=== PATIENT | female | born 1955 | race Caucasian/White ===

== ENCOUNTER 2021-09-09 08:55 | Emergency (ER) | payer BC, SELFPAY ==
--- NOTE | ~2021-09-09 | CT_ITS ---
EXAMINATION:CT diagnostic chest wo con DATE: 09/09/2021 11:00 INDICATION: Right lung nodule. Abnormal chest radiograph. TECHNIQUE: Computed tomography (CT) of the chest was performed without intravenous contrast. Automate d exposure control and iterative reconstruction technique were employed. The dose-length product (DLP ) was 157.47 mGy-cm. COMPARISON: Chest single view 09/09/2021 FINDINGS: There is mild scarring at the lung apices. There is a cluster of nodules measuring up to 9 mm in right middle lobe. There is a small right posterior diaphragmatic hernia containing fat. No ple ural effusion. The heart size is normal. No pericardial effusion. There is mild thoracic spondylosis. IMPRESSION: 1. Cluster of nodules measuring up to 9 mm in right lung middle lobe. The distribution favors granulo matous disease over malignancy. Noncontrast chest CT is recommended in 3 months. Reviewed, dictated and finalized at location A. IMPRESSION: 1. Cluster of nodules measuring up to 9 mm in right lung middle lobe. The distr ibution favors granulomatous disease over malignancy. Noncontrast chest CT is r ecommended in 3 months.
--- NOTE | ~2021-09-09 | XR_ITS ---
XR chest 1V portable 09/09/2021 09:37 Indication: Chest pain Procedure: AP portable chest Comparison: No prior studies for comparison. Findings: Heart size normal. No focal air space disease, pulmonary edema, pleural effusion or suspect ed pneumothorax. There is a nodular density overlying the right lower thorax. Follow-up CT chest mayo mmended. No acute osseous abnormality. Impression: 1: Nodular density right lower thorax. Follow-up CT chest recommended. Reviewed, dictated and finalized at location A. Impression: 1: Nodular density right lower thorax. Follow-up CT chest recommended.
--- NOTE | ~2021-09-09 | CT_ITS ---
EXAMINATION: CT brain wo con DATE: 09/09/2021 09:19 INDICATION: One week of headache and dizziness presenting with now one day of right facial droop and blurry vision from the right eye. TECHNIQUE: Computed tomography (CT) of the head was performed without intravenous contrast. Sagittal and coronal reconstructions were performed. The mA was adjusted according to patient size. Iterative reconstruction technique was employed. The dose-length product was 605.33 mGy-cm. COMPARISON: None FINDINGS: No acute intracranial hemorrhage, acute infarction or abnormal extra axial fluid collection. There is minimal scattered white matter hypoattenuation consistent with chronic small vessel ischemic disease . Ventricles are normal and symmetric. No mass/mass effect. Mild mucosal thickening the left sphenoi d and bilateral ethmoid sinuses. The orbits and mastoid air cells are normal. IMPRESSION: 1. No acute intracranial process. 2. Minimal scattered white matter hypoattenuation consistent with chronic small vessel ischemic disea se. Reviewed, dictated and finalized at location B. IMPRESSION: 1. No acute intracranial process. 2. Minimal scattered white matter hypoattenuation consistent with chronic small vessel ischemic disease.
[2021-09-09 08:56] VITALS: BP 150/91; PULSE 101; RESP 20; TEMP 36.3; O2SAT 97
--- NOTE | 2021-09-09 09:12 | ECG_ITS ---
Measurements Intervals [place] Rate: 80 P: 65 MN: 164 QRS: 34 QRSD: 109 T: 52 QT: 365 QTc: 422 Interpretive Statements SINUS RHYTHM INCOMPLETE RIGHT BUNDLE BRANCH BLOCK [90+ ms QRS DURATION, TERMINAL R IN V1/V2, 40+ ms S IN I/aVL/V4/V5/V6] BORDERLINE ECG NO PREVIOUS ECG AVAILABLE FOR COMPARISON Electronically Signed On 09-09-2021 16:50:30 CDT by Alireza Berger M.D.
[2021-09-09 09:21] LABS: Basophils Absolute Auto 0.02 K/mm3 (0.00-0.10); Basophils Percent Auto 0.4 % (0.0-1.0); Eosinophils Absolute Auto 0.14 K/mm3 (0.02-0.50); Eosinophils Percent Auto 2.5 % (1.0-6.0); Hematocrit 41.1 % (35.0-49.0); Hemoglobin 13.4 g/dL (12.0-15.0); Immature Granulocyte Absolute 0.11 K/mm3 (0.00-0.00); Immature Granulocyte Percent A 1.9 % (0.0-0.0); Lymphocytes Absolute Auto 2.23 K/mm3 (1.10-4.50); Lymphocytes Percent Auto 39.3 % (18.0-42.0); Mean Corpuscular HGB Conc 32.6 g/dL (32.0-36.0); Mean Corpuscular Hemoglobin 28.5 pg (27.0-31.0); Mean Corpuscular Volume 87.4 fL (78.0-102.0); Mean Platelet Volume 11.5 fl (9.2-11.8); Monocytes Absolute Auto 0.39 K/mm3 (0.10-0.90); Monocytes Percent Auto 6.9 % (2.0-11.0); Neutrophils Absolute Auto 2.8 K/mm3 (1.7-7.2); Platelet Count Result 193 K/mm3 (150-420); Red Cell Distribution Width 13.2 % (11.6-14.4); White Blood Count 5.7 K/mm3 (4.8-10.8)
[2021-09-09] MEDS: ASPIRIN 325 MG ENTERIC TABLET PO (09:27)
[2021-09-09] MEDS: SODIUM CHLORIDE 0.9% IV 500 ML 999 ML IV CONT (09:28)
[2021-09-09 09:33] LABS: Alanine Aminotransferase 40 U/L (14-59); Alkaline Phosphatase 66 U/L (46-116); Anion Gap 7 mmol/L (8-16); Aspartate Amino Transferase 20 U/L (15-37); Bilirubin,Total 0.5 mg/dL (0.00-1.00); Blood Urea Nitrogen 14 mg/dL (7-18); Calcium 9.1 mg/dL (8.5-10.1); Carbon Dioxide 26 mmol/L (21-32); Chloride 105 mmol/L (98-108); Estimated Glomerular Filt Rate > 60; Glucose 122 mg/dL (70-99); Osmolality Calculated 287 mOsm/kg (285-295); Potassium 3.7 mmol/L (3.5-5.1); Sodium 138 mmol/L (136-145); Total Protein 7.8 g/dL (6.4-8.2); Troponin I 6.2 ng/L (0.00-60.4)
[2021-09-09 09:36] LABS: Lactic Acid Reflex 1.9 mmol/L (0.4-2.0)
--- NOTE | 2021-09-09 09:50 | PC.NURSE ---
pt taken to ct scanner at 908 and return to room at 09
[2021-09-09 10:02] LABS: Add Urine Microscopic? NO; Appearance Urine Clear (Clear); Bilirubin Urine Negative (Negative); Blood Urine Negative (Negative); Color Urine Light Yellow (Yellow); Glucose Urine UA Negative (Negative); Ketones Urine Negative (Negative); Leukocyte Esterase Ur Negative (Negative); Nitrate Urine Negative (Negative); Protein Urine Negative (Negative); Specific Grav Ur <= 1.005 (1.010-1.020); Urobilinogen Urine 0.2 mg/dL (0.2-1.0)
--- NOTE | 2021-09-09 10:55 | PC.NURSE ---
pt to ct scan with xray staff [id number], pt return at 1104
--- NOTE | 2021-09-09 11:23 | PC.NURSE ---
in room with pt. waiting call back from [facility]
--- NOTE | 2021-09-09 12:05 | ED.NEUROSD ---
HPI - Neuro Symptoms/Deficit General Chief Complaint: Suspected CVA Stated Complaint: R sided facial drooping Time Seen by Provider: 09/09/21 08:59 Source: patient, family and RN notes reviewed Mode of arrival: ambulatory Limitations: no limitations History of Present Illness Onset (ago): day(s) (1) Timing confirmed by: family member Location: right face (dense facial droop) History of same: No Severity: moderate Quality: weak Relieving factors: none Exacerbating factors: none Context: sudden onset On Anticoagulants: No Associated symptoms: nausea/vomiting Related Data Allergies Allergy/AdvReac Type Severity Reaction Status Date / Time banana Allergy Unknown Verified 12/07/17 10:21 cat dander Allergy Unknown Verified 12/07/17 10:21 Review of Systems Review of Systems: All systems reviewed & are unremarkable except as noted in HPI and below Constitutional: Constitutional: Reports no additional constitutional complaints Eyes: Eyes: Reports no additional eye complaints ENT: Reports system reviewed and no additional complaints, except as documented Cardiovascular: Cardiovascular: Reports no additional cardiovascular complaints Respiratory: Respiratory: Reports no additional respiratory complaints Gastrointestinal: Gastrointestinal: Reports no additional gastrointestinal complaints Genitourinary: Genitourinary: Reports no additional female genitourinary complaints Musculoskeletal: Musculoskeletal: Reports no additional musculoskeletal complaints Integumentary/Breasts: Skin/Breast: Reports system reviewed and no additional complaints, except as docu Neurologic: Reports system reviewed and no additional complaints, except as documented Psychiatric: Psychiatric: Reports no additional psychiatric complaints Endocrine: Endocrine: Reports no additional endocrine complaints Hematologic/Lymphatic: Hematologic/Lymphatic: Reports no additional hematologic/lymphatic complaints Allergic/Immunologic: Allergic/Immunologic: Reports no additional allergic/immunologic complaints [facility] Past Medical History Medical History (Updated 09/09/21 @ 14:22 by True Kessler MD) Chondromalacia of patella, right Mouth droop due to facial weakness Social History Social History Smoking status: Never smoker Alcohol intake: never Exam Const: General: healthy appearing and no acute distress Nutritional Appearance: well nourished Orientation/consciousness: patient oriented x3 Limitations: no limitations HENMT: Head: normal to inspection and other (dense right facial droop with inability to close the right eye + decreased ) Ears: external ears normal, TM's normal bilaterally and EAC's normal General nose exam: Normal external nose present and Normal nares present Face and sinus: normal facial exam and sinuses nontender Mouth: Yes Normal oral and palatal mucosa present and Yes moist mucous membranes Teeth and gingiva: dentition normal Throat: posterior oropharynx normal Eyes: Conjunctivae: conjunctivae normal Pupils: Equal, round and reactive pupils present EOM: EOMs intact bilaterally Neck: Neck: normal visual inspection, no lymphadenopathy and no meningeal signs Chest: Chest palpation & inspection: normal inspection of the chest Resp: Effort & Inspection: normal respiratory effort Auscultation: clear to auscultation bilaterally Cardio: Rate: regular rate Rhythm: regular rhythm GI: GI Palp: Yes Soft to palpation and No Tenderness to palpation present (GI) Auscultation: normal bowel sounds : General: Yes bladder normal to palpation and Yes no CVA tenderness Bimanual exam- vagina & uterus: bladder normal to palpation Back/Spine/Pelvis: Back: no CVA tenderness Skin: General skin exam: normal color Rashes: no rashes Wounds: no wounds Neuro: General: patient oriented x3, moves all extremities, no meningeal signs, no focal motor deficits and CN's II-XI intact bilaterally Cranial nerves: Yes Equal, round a
[2021-09-09] MEDS: methylPREDNISolone SOD SUCC 125 MG VIAL IV PUSH (14:18)
[2021-09-09 14:28] VITALS: BP 132/71; PULSE 71; RESP 20; TEMP 36.3; O2SAT 97
--- NOTE | 2021-09-09 14:35 | PC.NURSE ---
meal provided for pt and . pt was able to eat and drink but issues with food pocketing on the right side of mouth and dribbling of liquids.
== END 2021-09-09 14:44 | disposition home or self-care (01) ==
PROVIDERS: Emergency Provider Emergency Medicine; PCP Internal Medicine
DX: G51.0 Bell's palsy (principal)
CPT/HCPCS: 36415; 70450; 71045; 71250; 80053; 81003; 83605; 84484; 85025; 93005; 96361; 96374; 99284; A9270; J2930; J7040

== ENCOUNTER 2022-01-19 07:32 | Outpatient (CLI) | payer MEDICARE, SELFPAY ==
--- NOTE | ~2022-01-19 | CT_ITS ---
EXAMINATION: CT diagnostic chest wo con DATE: 01/19/2022 07:52 INDICATION: Right lung nodules TECHNIQUE: Computed tomography (CT) of the chest was performed without intravenous contrast. The dose -length product (DLP) was 148.89 mGy-cm. Automated exposure control and iterative reconstruction tech [employer] were employed. COMPARISON: 09/09/2021 FINDINGS: Again seen is a stable cluster of nodules in the right middle lobe which measure up to 9 mm . Stable right upper lobe nodules measure up to 2 mm. No new pulmonary nodules are identified. No ple ural effusion or pneumothorax. The lungs are free of focal airspace opacities. There is mild thoracic spondylosis. IMPRESSION: 1. Stable cluster of nodules in the right middle lobe with stability and distribution favoring granul omatous disease. Follow-up low-dose CT of the chest in six months is recommended. Reviewed, dictated and finalized at location F. IMPRESSION: 1. Stable cluster of nodules in the right middle lobe with stability and distri bution favoring granulomatous disease. Follow-up low-dose CT of the chest in si x months is recommended.
== END 2022-01-19 07:33 | disposition home or self-care (01) ==
LOC: CHSIMG 07:36
PROVIDERS: PCP Internal Medicine; Visit Provider Internal Medicine
DX: R91.8 Other nonspecific abnormal finding of lung field (principal)
CPT/HCPCS: 71250

== ENCOUNTER 2022-10-23 07:51 | Outpatient (CLI) | payer MEDICARE, SELFPAY ==
--- NOTE | ~2022-10-23 | CT_ITS ---
CT Scan of the Chest without Contrast: Clinical Indication: Lung cancer screening, personal history of nicotine dependence Technique: Contiguous sections were acquired throughout the chest without intravenous contrast. Dose reduction technique was used on this scan by utilizing automated exposure control and iterative recon struction technique. The dose-length product (DLP) was 66.42 mGy-cm. COMPARISON: 01/19/2022, 09/09/2021 Findings: There is no evidence of any significant mediastinal, hilar or axillary lymphadenopathy. The mediastin al soft tissues appear normal. There is no evidence of pleural or pericardial effusion. Cluster of nodules in the right middle lobe is unchanged, with largest individual nodule measuring 9. 5 mm in diameter (axial images [id number]). Images through the upper abdomen reveal no abnormalities. Impression: Lung RADS 2: Benign appearance. 12 month follow-up screening CT advised. Reviewed, dictated and finalized at [facility]. Impression: Lung RADS 2: Benign appearance. 12 month follow-up screening CT advised.
== END 2022-10-23 07:52 | disposition home or self-care (01) ==
LOC: CHSIMG 07:55
PROVIDERS: PCP Internal Medicine; Visit Provider Internal Medicine
DX: Z12.2 Encounter for screening for malignant neoplasm of respiratory organs (principal); Z87.891 Personal history of nicotine dependence
CPT/HCPCS: 71271